=== PATIENT | female | born 1985 | race Caucasian/White ===

== ENCOUNTER 2021-11-06 09:29 | Observation (INO) | payer BC ==
[2021-11-06] MEDS ORDERED: SODIUM CHLORIDE 0.9% 1,000 ML IV STA (09:55)
[2021-11-06] MEDS ORDERED: SODIUM CHLORIDE 0.9% 500 ML 500 ML IV STA (09:55)
[2021-11-06] MEDS ORDERED: ONDANSETRON 4 MG/2 ML VIAL IVP STA (09:55)
[2021-11-06] MEDS ORDERED: HYDROmorphone 0.5 MG/0.5 ML SYRINGE IVP STA ×2 (09:55→11:17)
[2021-11-06 10:25] LABS: Basophils # (A) 0.1 k/uL (0-0.2); Basophils % (A) 1 %; Eosinophils # (A) 0.2 k/uL (0-0.7); Eosinophils % (A) 3 %; HCT 44.2 % (34.0-46.0); HGB 14.9 gm/dL (11.4-16.0); Lymphocytes # (A) 2.3 k/uL (1.0-4.8); Lymphocytes % (A) 33 %; MCH 33.3 pg (25.0-35.0); MCHC 33.7 g/dL (31.0-37.0); MCV 98.9 fL (80.0-100.0); Mean Platelet Volume 7.9; Monocytes # (A) 0.5 k/uL (0-1.0); Monocytes % (A) 7 %; Neutrophils # (A) 3.7 k/uL (1.3-7.7); Neutrophils % (A) 54 %; Platelet Count 221 k/uL (150-450); RBC 4.47 m/uL (3.80-5.40); RDW 12.8 % (11.5-15.5); WBC 6.9 k/uL (3.8-10.6)
[2021-11-06 10:26] LABS: Appearance,Urine Clear (Clear); Bilirubin,Urine Negative (Negative); Blood,Urine Negative (Negative); Color,Urine Yellow; Glucose,Urine (UA) Negative (Negative); Ketones,Urine Negative (Negative); Leukocyte Esterase,Urine Negative (Negative); Nitrite,Urine Negative (Negative); Protein,Urine Negative (Negative); Specific Gravity,Urine 1.011 (1.001-1.035); Urobilinogen,Urine <2.0 mg/dL (<2.0)
[2021-11-06 10:45] LABS: ALT 17 U/L (4-34); AST 19 U/L (14-36); African American GFR (CKD) >90 (>60 ml/min/1.73 sqM); Alkaline Phosphatase 45 U/L (38-126); Amylase 57 U/L (30-110); Anion Gap 8 mmol/L; Blood Urea Nitrogen 11 mg/dL (7-17); Calcium 9.1 mg/dL (8.4-10.2); Carbon Dioxide 20 mmol/L (22-30); Chloride 109 mmol/L (98-107); Glucose 110 mg/dL (74-99); Lipase 177 U/L (23-300); Non-African American GFR(CKD) >90 (>60 ml/min/1.73 sqM); Potassium 4.1 mmol/L (3.5-5.1); Sodium 137 mmol/L (137-145); Total Bilirubin 0.6 mg/dL (0.2-1.3); Total Protein 7.1 g/dL (6.3-8.2)
--- NOTE | 2021-11-06 10:47 | ED ---
Abdominal Pain HPI - General Chief Complaint: Abdominal Pain Stated Complaint: Abd Pain/Nausea Time Seen by Provider: 11/06/21 09:45 Source: patient, RN notes reviewed Mode of arrival: ambulatory Limitations: no limitations - History of Present Illness Initial Comments: This a 36 show female presents emergency from chief complaint right-sided abdominal pain. Patient states she's had pain for a while but states Greatly worsen patient states that it's worse with eating. She states it's her upper quadrant, epigastric region. She denies any significant heartburn history patient denies any prior surgeries including gallbladder, appendectomy, hysterec jonah. Patient doesn't dysuria hematuria denies any chance mild diarrhea no constipation or melena hematochezia. - Related Data Home Medications Medication Instructions Recorded Confirmed No Known Home Medications 11/06/21 11/06/21 Allergies Allergy/AdvReac Type Severity Reaction Status Date / Time No Known Allergies Allergy Verified 11/06/21 10:49 Review of Systems ROS Statement: Those systems with pertinent positive or pertinent negative responses have been documented in the HPI. ROS Other: All systems not noted in ROS Statement are negative. Past Medical History Past Medical History: No Reported History History of Any Multi-Drug Resistant Organisms: None Reported Past Surgical History: Orthopedic Surgery, Tubal Ligation Additional Past Surgical History / Comment(s): wisdom teeth , right knee surgery Past Psychological History: Anxiety Smoking Status: Current every day smoker Past Alcohol Use History: Occasional Past Drug Use History: Marijuana General Exam Limitations: no limitations General appearance: alert, in no apparent distress Head exam: Present: atraumatic, normocephalic, normal inspection Eye exam: Present: normal appearance, PERRL, EOMI. Absent: scleral icterus, conjunctival injection, periorbital swelling ENT exam: Present: normal exam, normal oropharynx, mucous membranes moist Neck exam: Present: normal inspection, full ROM. Absent: tenderness, meningismus, lymphadenopathy Respiratory exam: Present: normal lung sounds bilaterally. Absent: respiratory distress, wheezes, rales, rhonchi, stridor Cardiovascular Exam: Present: regular rate, normal rhythm, normal heart sounds. Absent: systolic murmur, diastolic murmur, rubs, gallop, clicks GI/Abdominal exam: Present: soft, tenderness (Moderate right upper quadrant tenderness), normal bowel sounds. Absent: distended, guarding, rebound, rigid Back exam: Absent: CVA tenderness (R), CVA tenderness (L) Course Vital Signs 11/06/21 09:30 Temperature 97 F L Pulse Rate 57 L Respiratory 16 Rate Blood Pressure 125/82 O2 Sat by Pulse 98 Oximetry Medical Decision Making - Medical Decision Making Ultrasound shows evidence of a large gallbladder, multiple gallstones and dilated common bile duct. Patient does have normal LFTs. Case discussed with Dr. Levy recommends patient be admitted for IV antibiotics, pending surgery - Lab Data Result diagrams: 11/06/21 10:05 11/06/21 10:05 Lab Results 11/06/21 11/06/21 11/06/21 Range/Units 10:05 10:05 10:07 WBC 6.9 (3.8-10.6) k/uL RBC 4.47 (3.80-5.40) m/uL Hgb 14.9 (11.4-16.0) gm/dL Hct 44.2 (34.0-46.0) % MCV 98.9 (80.0-100.0) fL MCH 33.3 (25.0-35.0) pg MCHC 33.7 (31.0-37.0) g/dL RDW 12.8 (11.5-15.5) % Plt Count 221 (150-450) k/uL MPV 7.9 Neutrophils % 54 % Lymphocytes % 33 % Monocytes % 7 % Eosinophils % 3 % Basophils % 1 % Neutrophils # 3.7 (1.3-7.7) k/uL Lymphocytes # 2.3 (1.0-4.8) k/uL Monocytes # 0.5 (0-1.0) k/uL Eosinophils # 0.2 (0-0.7) k/uL Basophils # 0.1 (0-0.2) k/uL Sodium 137 (137-145) mmol/L Potassium 4.1 (3.5-5.1) mmol/L Chloride 109 H (98-107) mmol/L Carbon Dioxide 20 L (22-30) mmol/L Anion Gap 8 mmol/L BUN 11 (7-17) mg/dL Creatinine 0.71 (0.52-1.04) mg/dL Est GFR (CKD-EPI)AfAm >90 (>60 ml/min/1.73 sqM) Est GFR (CKD-EPI)NonAf >90 (>60 ml/min/1.73 sqM) Glucose 110 H (74-99) mg/dL Calcium 9.1 (8.4-10.2) mg/dL Total Bilirubin 0.6 (0.2-1.3) mg/dL AST 19 (14-36) U/L ALT 17 (4-34) U/L Alkaline Phosphatase 45 (38-126) U/L Total Protein 7.1 (6.3-8.2) g/dL Albumin 4.0 (3.5-5.0) g/dL Amylase 57 (30-110) U/L Lipase 177 (23-300) U/L Urine Color Yellow Urine Appearance Clear (Clear) Urine pH 5.0 (5.0-8.0) Ur Specific [place] 1.011 (1.001-1.035) Urine Protein Negative (Negative) Urine Glucose (UA) Negative (Negative) Urine Ketones Negative (Negative) Urine Blood Negative (Negative) Urine Nitrite Negative (Negative) Urine Bilirubin Negative (Negative) Urine Urobilinogen <2.0 (<2.0) mg/dL Ur Leukocyte Esterase Negative (Negative) Urine HCG, Qual (Not Detectd) 11/06/21 Range/Units 10:07 WBC (3.8-10.6) k/uL RBC (3.80-5.40) m/uL Hgb (11.4-16.0) gm/dL Hct (34.0-46.0) % MCV (80.0-100.0) fL MCH (25.0-35.0) pg MCHC (31.0-37.0) g/dL RDW (11.5-15.5) % Plt Count (150-450) k/uL MPV Neutrophils % % Lymphocytes % % Monocytes % % Eosinophils % % Basophils % % Neutrophils # (1.3-7.7) k/uL Lymphocytes # (1.0-4.8) k/uL Monocytes # (0-1.0) k/uL Eosinophils # (0-0.7) k/uL Basophils # (0-0.2) k/uL Sodium (137-145) mmol/L Potassium (3.5-5.1) mmol/L Chloride (98-107) mmol/L Carbon Dioxide (22-30) mmol/L Anion Gap mmol/L BUN (7-17) mg/dL Creatinine (0.52-1.04) mg/dL Est GFR (CKD-EPI)AfAm (>60 ml/min/1.73 sqM) Est GFR (CKD-EPI)NonAf (>60 ml/min/1.73 sqM) Glucose (74-99) mg/dL Calcium (8.4-10.2) mg/dL Total Bilirubin (0.2-1.3) mg/dL AST (14-36) U/L ALT (4-34) U/L Alkaline Phosphatase (38-126) U/L Total Protein (6.3-8.2) g/dL Albumin (3.5-5.0) g/dL Amylase (30-110) U/L Lipase (23-300) U/L Urine Color Urine Appearance (Clear) Urine pH (5.0-8.0) Ur Specific [place] (1.001-1.035) Urine Protein (Negative) Urine Glucose (UA) (Negative) Urine Ketones (Negative) Urine Blood (Negative) Urine Nitrite (Negative) Urine Bilirubin (Negative) Urine Urobilinogen (<2.0) mg/dL Ur Leukocyte Esterase (Negative) Urine HCG, Qual Not Detected (Not Detectd) Disposition Clinical Impression: Cholecystitis with cholelithiasis Disposition: ADMITTED IP TO THIS [facility] Condition: Fair Referrals: Scot Blood MD [Primary Care Provider] - 1-2 days
--- NOTE | 2021-11-06 11:30 | US ---
EXAMINATION TYPE: US gallbladder DATE OF EXAM: 11/06/2021 COMPARISON: NONE CLINICAL HISTORY: pain. RUQ pain for the past 3 weeks EXAM MEASUREMENTS: Liver Length: 20.3 cm Gallbladder Wall: 0.3 cm CBD: 0.8 cm Right Kidney: 11.6 x 5.9 x 5.2 cm Pancreas: Partially obscured by bowel gas Liver: Upper limits in size. Gallbladder: Multiple shadowing stones, Upper limits in size measuring 11.6 x 3.2cm Evidence for sonographic Borges's sign: Yes CBD: wnl Right Kidney: No hydronephrosis or masses seen Multiple shadowing gallstones seen; with prominent CBD, large gallbladder and positive Borges's sign . IMPRESSION: 1. Gallbladder hydrops with numerous gallstones. CBD mildly dilated correlate for distal CBD stone or obstruction.
[2021-11-06] MEDS ORDERED: PIPERACILLIN-TAZOBACTAM 3.375 GM in SODIUM CHLORIDE 0.9% 100 ML IVPB STA (11:48)
[2021-11-06] MEDS ORDERED: ONDANSETRON 4 MG/2 ML VIAL IVP PRN (11:52)
[2021-11-06] MEDS ORDERED: NALOXONE 0.4 MG/ML 1 ML VIAL IV PRN (11:52)
[2021-11-06] MEDS ORDERED: ACETAMINOPHEN TAB 325 MG TAB PO PRN (11:52)
[2021-11-06] MEDS ORDERED: NICOTINE 21MG/24HR PATCH TRANSDERM STA (12:36)
[2021-11-06] MEDS: HYDROmorphone 0.5 MG/0.5 ML SYRINGE IVP PRN ×4 (13:33→22:40)
[2021-11-06] MEDS: SODIUM CHLORIDE 0.9% 1,000 ML IV SCH (14:22)
--- NOTE | 2021-11-06 14:41 | P.GSHP ---
<Cristela Eli - Last Filed: 11/06/21 14:26> History of Present Illness H&P Date: 11/06/21 Chief Complaint: Abdominal pain CHIEF COMPLAINT: Abdominal pain HISTORY OF PRESENT ILLNESS: This is a 36-year-old female who presented to the emergency room this morning with complaints of abdominal pain associated with nausea and vomiting. States abdominal pain has been in the right upper quadrant over the last 3 weeks duration and has been intermittent but progressively getti ng worse. States today the pain was bad she could not tolerate it any further and came into the emergency department for further evaluation. She denies any recent traveling, fevers or chills. She denies any vomiting today, states that she has some nausea. States pain has gotten worse after eating fatty foods. Denies any previous history of gallbladder disease. She does state that she's had issues with constipation and diarrhea. She was afebrile on admission. No leukocytosis. She had a ultrasound of the gallbladder that showed gallbladder hydrops with numerous gallstones. CBD mildly dilated correlate for distal CBD stone or obstruction. LFTs were all within normal limits. PAST MEDICAL HISTORY: See list. PAST SURGICAL HISTORY: See list. MEDICATIONS: See list. ALLERGIES: See list. SOCIAL HISTORY: No illicit drug use. Current every day smoker. REVIEW OF SYSTEMS: CONSTITUTIONAL: Denies fever or chills. HEENT: Denies blurred vision, vision changes, or eye pain. Denies hemoptysis CARDIOVASCULAR: Denies chest pain or pressure. RESPIRATORY: No shortness of breath. GASTROINTESTINAL: See HPI for pertinent findings HEMATOLOGIC: Denies bleeding disorders. GENITOURINARY: Denies any blood in urine or increased urinary frequency. SKIN: Denies pruitis. Denies rash. PHYSICAL EXAM: VITAL SIGNS: Reviewed GENERAL: Well-developed in no acute distress. HEENT: No sclera icterus. Extraocular movements grossly intact. Moist buccal mucosa. Head is atraumatic, normocephalic. No nasal drainage. ABDOMEN: Soft. Nondistended. Tenderness with palpation to right upper jennifer drant. NEUROLOGIC: Alert and oriented. Cranial nerves II through XII grossly intact. LABORATORY DATA: WBC 6.9 hemoglobin 14.9 hematocrit 44 platelet count 221,000 Sodium 137 potassium 4.1 BUN 11 creatinine 0.7 glucose 110 Total bilirubin 0.6 AST 19 ALT 17 alkaline phosphatase 45 amylase 57 lipase 177 Urine screen negative IMAGING: Ultrasound of the gallbladder that showed gallbladder hydrops with numerous gallstones. CBD mildly dilated correlate for distal CBD stone or obstruction. ASSESSMENT: 1. Right upper quadrant abdominal pain 2. Acute cholecystitis with cholelithiasis 3. Tobacco abuse PLAN: 1. Patient may have full liquid diet, nothing by mouth after midnight 2. Antiemetics as needed 3. Continue Zosyn as ordered every 8 hours 4. Protonix 40 mg daily GI prophylaxis 5. Tentative plan for laparoscopic cholecystectomy with possible open gallbladder scheduled for tomorrow Thank you for this consultation, we will continue to follow. The impression and plan of care has been dictated as directed. Dr. Levy I performed a history and examination of this patient, discussed the same with the dictator. I agree with the dictator's note ,documented as a scribe. Any additional findings or plans will be noted.. Past Medical History Past Medical History: Osteoarthritis (OA) Additional Past Medical History / Comment(s): Bronchitis few years ago, occasional R knee pain/knee cap dislocated. History of Any Multi-Drug Resistant Organisms: None Reported Past Surgical History: Orthopedic Surgery, Tubal Ligation Additional Past Surgical History / Comment(s): R knee arthroscopy, wisdom teeth extractions, D&Cs Past Anesthesia/Blood Transfusion Reactions: No Reported Reaction Smoking Status: Current every day smoker - Past Family History Mother Family Medical History: Cancer Additional Family Medical History / Comment(s): Mother of small cell lung cancer. She was a smoker. Father Additional Family Medical History / Comment(s): Father was born with a heart murmur, aortic valve replacement, gastric ulcers. Medications and Allergies Home Medications Medication Instructions Recorded Confirmed Type No Known Home Medications 11/06/21 11/06/21 History Allergies Allergy/AdvReac Type Severity Reaction Status Date / Time No Known Allergies Allergy Verified 11/06/21 10:49 Surgical - Exam Vital Signs Temp Pulse Resp BP Pulse Ox 97 F L 57 L 16 125/82 98 11/06/21 09:30 11/06/21 09:30 11/06/21 09:30 11/06/21 09:30 11/06/21 09:30 Results - Labs 11/06/21 10:05 11/06/21 10:05 Abnormal Lab Results - Last 24 Hours (Table) 11/06/21 Range/Units 10:05 Chloride 109 H (98-107) mmol/L Carbon Dioxide 20 L (22-30) mmol/L Glucose 110 H (74-99) mg/dL Diabetes panel 11/06/21 Range/Units 10:05 Sodium 137 (137-145) mmol/L Potassium 4.1 (3.5-5.1) mmol/L Chloride 109 H (98-107) mmol/L Carbon Dioxide 20 L (22-30) mmol/L BUN 11 (7-17) mg/dL Creatinine 0.71 (0.52-1.04) mg/dL Glucose 110 H (74-99) mg/dL Calcium 9.1 (8.4-10.2) mg/dL AST 19 (14-36) U/L ALT 17 (4-34) U/L Alkaline Phosphatase 45 (38-126) U/L Total Protein 7.1 (6.3-8.2) g/dL Albumin 4.0 (3.5-5.0) g/dL Calcium panel 11/06/21 Range/Units 10:05 Calcium 9.1 (8.4-10.2) mg/dL Albumin 4.0 (3.5-5.0) g/dL Pituitary panel 11/06/21 Range/Units 10:05 Sodium 137 (137-145) mmol/L Potassium 4.1 (3.5-5.1) mmol/L Chloride 109 H (98-107) mmol/L Carbon Dioxide 20 L (22-30) mmol/L BUN 11 (7-17) mg/dL Creatinine 0.71 (0.52-1.04) mg/dL Glucose 110 H (74-99) mg/dL Calcium 9.1 (8.4-10.2) mg/dL Adrenal panel 11/06/21 Range/Units 10:05 Sodium 137 (137-145) mmol/L Potassium 4.1 (3.5-5.1) mmol/L Chloride 109 H (98-107) mmol/L Carbon Dioxide 20 L (22-30) mmol/L BUN 11 (7-17) mg/dL Creatinine 0.71 (0.52-1.04) mg/dL Glucose 110 H (74-99) mg/dL Calcium 9.1 (8.4-10.2) mg/dL Total Bilirubin 0.6 (0.2-1.3) mg/dL AST 19 (14-36) U/L ALT 17 (4-34) U/L Alkaline Phosphatase 45 (38-126) U/L Total Protein 7.1 (6.3-8.2) g/dL Albumin 4.0 (3.5-5.0) g/dL <Chung Levy - Last Filed: 11/06/21 19:09> History of Present Illness I have personally seen and examined the patient, reviewed the STATISTICAL PROGRAMMER ANALYST /PAs history, exam and MDM and agree with the assessment and plan as written. Based on total visit time, I have performed more than 50% of the visit. As above: Patient presents with several week history of right upper quadrant pain. Increasing in severity. Patient appears comfortable. Patient is very frustrated that she cannot have a cigarette. She is also very hungry. She was placed on full liquids. She is tolerating that. Clinical scenario reviewed with the patient. Tentatively scheduled patient for laparoscopic, possible open cholecystectomy tomorrow. Will repeat labs in the a.m. Nothing eat or drink after midnight. Risks of bleeding, infection, bile leak, bile duct injury, retained common bile duct stone, trocar injury, conversion to an open procedure, hernia, anesthesia related complications were reviewed. The patient understands and wishes to proceed. Surgical - Exam Vital Signs Temp Pulse Resp BP Pulse Ox 97 F L 57 L 16 125/82 98 11/06/21 09:30 11/06/21 09:30 11/06/21 09:30 11/06/21 09:30 11/06/21 09:30 Results - Labs 11/06/21 10:05 11/06/21 10:05 Abnormal Lab Results - Last 24 Hours (Table) 11/06/21 Range/Units 10:05 Chloride 109 H (98-107) mmol/L Carbon Dioxide 20 L (22-30) mmol/L Glucose 110 H (74-99) mg/dL Diabetes panel 11/06/21 Range/Units 10:05 Sodium 137 (137-145) mmol/L Potassium 4.1 (3.5-5.1) mmol/L Chloride 109 H (98-107) mmol/L Carbon Dioxide 20 L (22-30) mmol/L BUN 11 (7-17) mg/dL Creatinine 0.71 (0.52-1.04) mg/dL Glucose 110 H (74-99) mg/dL Calcium 9.1 (8.4-10.2) mg/dL AST 19 (14-36) U/L ALT 17 (4-34) U/L Alkaline Phosphatase 45 (38-126) U/L Total Protein 7.1 (6.3-8.2) g/dL Albumin 4.0 (3.5-5.0) g/dL Calcium panel 11/06/21 Range/Units 10:05 Calcium 9.1 (8.4-10.2) mg/dL Albumin 4.0 (3.5-5.0) g/dL Pituitary panel 11/06/21 Range/Units 10:05 Sodium 137 (137-145) mmol/L Potassium 4.1 (3.5-5.1) mmol/L Chloride 109 H (98-107) mmol/L Carbon Dioxide 20 L (22-30) mmol/L BUN 11 (7-17) mg/dL Creatinine 0.71 (0.52-1.04) mg/dL Glucose 110 H (74-99) mg/dL Calcium 9.1 (8.4-10.2) mg/dL Adrenal panel 11/06/21 Range/Units 10:05 Sodium 137 (137-145) mmol/L Potassium 4.1 (3.5-5.1) mmol/L Chloride 109 H (98-107) mmol/L Carbon Dioxide 20 L (22-30) mmol/L BUN 11 (7-17) mg/dL Creatinine 0.71 (0.52-1.04) mg/dL Glucose 110 H (74-99) mg/dL Calcium 9.1 (8.4-10.2) mg/dL Total Bilirubin 0.6 (0.2-1.3) mg/dL AST 19 (14-36) U/L ALT 17 (4-34) U/L Alkaline Phosphatase 45 (38-126) U/L Total Protein 7.1 (6.3-8.2) g/dL Albumin 4.0 (3.5-5.0) g/dL
[2021-11-06] MEDS: PIPERACILLIN-TAZOBACTAM 3.375 GM in SODIUM CHLORIDE 0.9% 100 ML IVPB SCH (16:34)
[2021-11-06] MEDS: ZOLPIDEM 10 MG TAB PO PRN (21:34)
[2021-11-07] MEDS: HYDROmorphone 0.5 MG/0.5 ML SYRINGE IVP PRN ×4 (02:37→12:30)
[2021-11-07] MEDS: PIPERACILLIN-TAZOBACTAM 3.375 GM in SODIUM CHLORIDE 0.9% 100 ML IVPB SCH ×3 (02:37→20:44)
[2021-11-07] MEDS: SODIUM CHLORIDE 0.9% 1,000 ML IV SCH ×2 (02:45→17:43)
[2021-11-07] MEDS: NICOTINE 14MG/24HR PATCH TRANSDERM SCH (05:59)
[2021-11-07 11:42] VITALS: BMI 28.8
[2021-11-07 11:51] LABS: Basophils # (A) 0.04 X 10*3/uL (0.00-0.10); Basophils % (A) 0.7 %; Eosinophils # (A) 0.21 X 10*3/uL (0.04-0.35); Eosinophils % (A) 3.4 %; HCT 42.5 % (37.2-46.3); HGB 13.9 g/dL (12.0-15.0); Immature Grans, Automated 0.2 %; Lymphocytes # (A) 2.61 X 10*3/uL (0.90-5.00); Lymphocytes % (A) 42.6 %; MCH 31.9 pg (27.0-32.0); MCHC 32.7 g/dL (32.0-37.0); MCV 97.5 fL (80.0-97.0); Mean Platelet Volume 10.2 fL (9.5-12.2); Monocytes # (A) 0.56 X 10*3/uL (0.20-1.00); Monocytes % (A) 9.2 %; NRBC Per 100 WBC 0 /100 WBCS (0.0-0.0); Neutrophils # (A) 2.69 X 10*3/uL (1.80-7.70); Neutrophils % (A) 43.9 %; Platelet Count 216 X 10*3/uL (140-440); RBC 4.36 X 10*6/uL (4.10-5.20); RDW 13.2 % (11.5-14.5); WBC 6.12 X 10*3/uL (4.50-10.00)
[2021-11-07 12:08] LABS: Albumin 4.1 g/dL (3.8-4.9); Albumin/Globulin Ratio 1.81 (1.60-3.17); BUN/Creat Ratio 9.54 Ratio (12.00-20.00); Calcium 9.4 mg/dL (8.7-10.3); Carbon Dioxide 21.2 mmol/L (20.0-27.5); Globulin 2.3 g/dL (1.6-3.3); Non-African American GFR(CKD) 115.6 (60.0-200.0); Potassium 4.5 mmol/L (3.5-5.5); Total Bilirubin 0.5 mg/dL (0.30-1.20); Total Protein 6.3 g/dL (6.2-8.2)
[2021-11-07] MEDS ORDERED: LACTATED RINGERS 1,000 ML IV SCH (14:04)
[2021-11-07] MEDS ORDERED: HEPARIN SODIUM,PORCINE/PF 5,000 UNIT/0.5 ML SYRINGE SQ ONE (14:16)
[2021-11-07] MEDS ORDERED: ONDANSETRON 4 MG/2 ML VIAL IVP ONE (14:20)
[2021-11-07] MEDS ORDERED: SCOPOLAMINE 1.5MG/72HR PATCH TRANSDERM ONE (14:21)
[2021-11-07] MEDS ORDERED: DEXAMETHASONE SOD PHOSPHATE 4 MG/ML 1 ML VIAL IVP ONE (14:21)
[2021-11-07] MEDS ORDERED: HEPARIN SODIUM,PORCINE 5,000 UNIT/ML 1 ML VIAL SQ ONE (15:15)
[2021-11-07] MEDS ORDERED: HYDROmorphone 1 MG/ML 1 ML SYRINGE IVP ONE (15:19)
[2021-11-07] MEDS ORDERED: ROCURONIUM 10 MG/ML (5 ML VIAL) IV ONE (15:41)
[2021-11-07] MEDS ORDERED: HYDROmorphone (PF) 1 MG/ML ONE (15:41)
[2021-11-07] MEDS ORDERED: MIDAZOLAM 2 MG/2 ML VIAL ONE (15:41)
[2021-11-07] MEDS ORDERED: fentaNYL (PF) 50 MCG/ML 2 ML AMP ONE (15:41)
[2021-11-07] MEDS ORDERED: LIDOCAINE 1% INJ 10MG/ML (20 ML MDV) ONE (15:41)
[2021-11-07] MEDS ORDERED: PROPOFOL 10 MG/ML 20 ML VIAL IV ONE (15:41)
[2021-11-07] MEDS ORDERED: GLYCOPYRROLATE 0.2 MG/ML 2 ML VIAL ONE (15:41)
[2021-11-07] MEDS ORDERED: NEOSTIGMINE 1 MG/ML 10 ML VIAL ONE (15:41)
[2021-11-07] MEDS ORDERED: BUPIVACAIN-EPI 0.25%-1:200,000 30 ML VIAL SQ ONE ×2 (15:58→16:04)
[2021-11-07] MEDS ORDERED: IBUPROFEN 600 MG TAB PO PRN (17:04)
--- NOTE | 2021-11-07 17:08 | P.OP ---
Date of Procedure: 11/07/21 Procedure(s) Performed: PREOPERATIVE DIAGNOSIS: Acute cholecystitis POSTOPERATIVE DIAGNOSIS: Same PROCEDURE: Laparoscopic cholecystectomy SURGEON: Cam EBL: Minimal see anesthesia record ANESTHESIA: Gen. COMPLICATIONS: None OPERATIVE PROCEDURE: The patient was brought and placed on the operating room table in the supine position. The patient was placed under general anesthesia at that time. The abdomen was prepped and draped in the usual sterile fashion. A small vertical infraumbilical incision was made. The fascia was grasped with the Bird forceps. The fascia was retracted anteriorly. The Veress needle was advanced into the peritoneal cavity. The saline drop test was normal. Insufflation took place up to 15 mmHg. A 5 mm optical trocar was advanced and the peritoneal cavity. 2 additional 5 mm trochars were placed in the right upper quadrant under direct visualization. A 12 mm trocar was advanced into the epigastric incision site. The gallbladder was acutely inflamed with an edematous wall. The gallbladder was retracted superiorly and laterally. The peritoneum overlying the infundibulum was bluntly dissected. The patient's cystic duct was visualized. The junction between the cystic duct common and hepatic duct was identified. The critical view of safety was achieved after blunt dissection. The cystic duct was then divided after placement of 3 12 mm clips on the patient's side and one on the specimen side. The cystic artery was identified and clipped as well. A small vessel was seen along the gallbladder fossa and ran parallel with the gallbladder for quite some distance. Branches coming off this vessel were clipped using the Ligaclip. The gallbladder was t hen removed from the liver bed using electrocautery. The gallbladder was then removed from the epigastric trocar site with an Endo Catch bag after lengthening the skin incision and fascial slightly. The gallbladder fossa was irrigated with saline. There was no evidence of any bleeding or biliary drainage seen. The fascia at the 12 millimeter site was closed using a running 0 Vicryl stitch. The trochars were then removed. The skin at all 4 sites was closed using a 4-0 Monocryl stitch. Skin glue was utilized on the incision sites. At the end of this procedure the sponge and needle counts were correct. DISPOSITION: Stable to the recovery room
[2021-11-07] MEDS ORDERED: HYDROmorphone 0.5 MG/0.5 ML SYRINGE IVP ONE ×3 (17:26→17:50)
[2021-11-07] MEDS ORDERED: MEPERIDINE 50 MG/ML SYRINGE IVP ONE ×2 (17:35→17:41)
[2021-11-07] MEDS: HYDROcodone/APAP 7.5-325MG 1 EACH TAB PO PRN (19:04)
[2021-11-07] MEDS: HYDROmorphone 1 MG/ML 1 ML SYRINGE IVP PRN ×2 (20:45→23:55)
[2021-11-07] MEDS: ZOLPIDEM 10 MG TAB PO PRN (22:06)
[2021-11-08] MEDS: HYDROcodone/APAP 7.5-325MG 1 EACH TAB PO PRN ×2 (01:47→07:30)
[2021-11-08] MEDS: PIPERACILLIN-TAZOBACTAM 3.375 GM in SODIUM CHLORIDE 0.9% 100 ML IVPB SCH ×2 (03:04→11:16)
[2021-11-08] MEDS: HYDROmorphone 1 MG/ML 1 ML SYRINGE IVP PRN ×3 (03:04→08:58)
[2021-11-08] MEDS: SODIUM CHLORIDE 0.9% 1,000 ML IV SCH (03:56)
[2021-11-08] MEDS: NICOTINE 14MG/24HR PATCH TRANSDERM SCH (06:05)
[2021-11-08 08:06] VITALS: BP 136/64; PULSE 49; RESP 18; TEMP 97.9
--- NOTE | 2021-11-08 10:32 | P.DS ---
Providers Date of admission: 11/06/21 11:51 Expected date of discharge: 11/08/21 Attending physician: Chung Levy Primary care physician: Scot Blood [facility] Hospital Course: Patient minute of the hospital with acute cholecystitis. Underwent laparoscopic cholecystectomy yesterday. Patient doing better today. Pain is controlled fairly well. She is tolerating her low fat diet. Incisions are clean and dry, minimal tenderness. Plan is for discharge today if pain is tolerable. Follow- up one week. Patient Condition at Discharge: Fair Plan - Discharge Summary Discharge Rx Participant: No New Discharge Prescriptions: New HYDROcodone/APAP 5-325MG [[place] 5-325] 1 tab PO Q4HR PRN 3 Days #10 tab PRN Reason: Pain Control Discharge Medication List HYDROcodone/APAP 5-325MG [[place] 5-325] 1 tab PO Q4HR PRN 3 Days #10 tab 11/07/21 [Rx] Follow up Appointment(s)/Referral(s): Chung Levy MD [Medical Doctor] - 2 Weeks Scot Blood MD [Primary Care Provider] - 1-2 days
== END 2021-11-08 11:43 | disposition home or self-care (01) ==
LOC: EC 09:29 → 6NMEDSUR 11:51
PROVIDERS: ADMIT Surgery; ATTEND Surgery
DX: K80.12 Calculus of gallbladder with acute and chronic cholecystitis without obstruction (principal); K59.00 Constipation, unspecified; K82.1 Hydrops of gallbladder; M19.90 Unspecified osteoarthritis, unspecified site; F17.210 Nicotine dependence, cigarettes, uncomplicated; F41.9 Anxiety disorder, unspecified; Z80.1 Family history of malignant neoplasm of trachea, bronchus and lung; Z81.2 Family history of tobacco abuse and dependence; Z83.79 Family history of other diseases of the digestive system; Z82.49 Family history of ischemic heart disease and other diseases of the circulatory system
CPT/HCPCS: 96376; 96374; 96375; 99285; 36415; 93005; 81025 ×2; 88304; 80053 ×2; 82150; 83690; 85025 ×2; 81003; 87040; 76705; 47562; G0378 ×3; S4990 ×3; J2543 ×3; J2250; J1644; J1100; J2710; J2175; J2405 ×2; J2001; J3010; J1170 ×4; J2704